=== PATIENT | female | born 1995 | race Caucasian/White ===

== ENCOUNTER → 2020-11-15 | Outpatient (CLI) | payer OTHER ==
[2020-11-15 10:00] LABS: APPEARANCE, URINE CLEAR (CLEAR); BACTERIA, URINE AUTO NEGATIVE (NEGATIVE); BILIRUBIN, URINE AUTO NEGATIVE (NEGATIVE); BLOOD, URINE BLOOD NEGATIVE (NEGATIVE); COLOR, URINE YELLOW (YELLOW); GLUCOSE, URINE (UA) AUTO NEGATIVE (NEGATIVE); KETONE, URINE AUTO NEGATIVE (NEGATIVE); LEUKOCYTE ESTERASE, URINE AUTO NEGATIVE (NEGATIVE); MUCUS, URINE SMALL (NEGATIVE); NITRITE, URINE AUTO NEGATIVE (NEGATIVE); PROTEIN, URINE AUTO NEGATIVE (NEGATIVE); RBC, URINE AUTO 3 /HPF (0-3); SPECIFIC GRAVITY URINE AUTO 1.023 (1.002-1.035); SQUAMOUS EPITHELIAL CELL UR AU 6 /HPF (0-6); UROBILINOGEN, URINE AUTO 0.2 mg/dL (0.0-2.0); WBC, URINE AUTO 0 /HPF (0-3)
[2020-11-15 10:02] LABS: BASO % 0.6 % (0.0-1.0); EOS # 0.1 10^3/uL (0.0-0.5); EOS % 1.2 % (0.0-3.0); HEMATOCRIT 42.8 % (36.0-47.0); HEMOGLOBIN 13.9 g/dl (12.0-15.5); LYMPH # 1.6 10^3/uL (1.5-5.0); LYMPH % 31.5 % (24.0-44.0); MEAN CORPUSCULAR HEMOGLOBIN 30.3 pg (27.0-33.0); MEAN CORPUSCULAR HGB CONC 32.5 g/dl (32.0-36.5); MEAN CORPUSCULAR VOLUME 93.2 fl (80.0-96.0); MONO # 0.5 10^3/uL (0.0-0.8); MONO % 10.3 % (2.0-8.0); NEUTROPHILS # 2.8 10^3/uL (1.5-8.5); NEUTROPHILS % 56.4 % (36.0-66.0); PLATELET COUNT, AUTOMATED 223 10^3/uL (150-450); RED BLOOD COUNT 4.59 10^6/uL (4.00-5.40)
[2020-11-15 10:21] LABS: HEMOGLOBIN A1c 4.8 %
[2020-11-15 10:41] LABS: ALBUMIN 4.2 GM/DL (3.2-5.2); ALT/SGPT 20 U/L (12-78); BILIRUBIN,TOTAL 0.8 MG/DL (0.2-1.0); BLOOD UREA NITROGEN 17 MG/DL (7-18); CALCIUM LEVEL 9.6 MG/DL (8.5-10.1); CARBON DIOXIDE LEVEL 29 MEQ/L (21-32); CHLORIDE LEVEL 107 MEQ/L (98-107); CHOLESTEROL LEVEL 140 MG/DL (<200); FREE T4 0.81 NG/DL (0.76-1.46); GLOMERULAR FILTRATION RATE > 60.0 (>60); GLUCOSE, FASTING 80 MG/DL (70-100); HDL CHOLESTEROL 80 MG/DL (>40); LDL CHOLESTEROL 53 MG/DL (<100); NON-HDL-C 60 MG/DL; POTASSIUM SERUM 4.5 MEQ/L (3.5-5.1); SODIUM LEVEL 139 MEQ/L (136-145); TRIGLYCERIDES LEVEL 36 MG/DL (<150)
[2020-11-15 11:58] LABS: TOTAL 25(OH) VITAMIN D 65.9 NG/ML (30.0-100.0)
== END ==
LOC: M LAB 08:53
PROVIDERS: ATTEND Physician Assistant
DX: Z00.01 Encounter for general adult medical examination with abnormal findings (principal)

== ENCOUNTER → 2021-01-14 | Outpatient (CLI) | payer OTHER ==
[~2021-01-14] MED LIST: ALBU8.5H INH; CITA40TA6 PO; D400400C PO; MAGN400C PO
== END ==
LOC: M LABSMTC 13:28
PROVIDERS: ATTEND Anesthesiology
DX: Z01.812 Encounter for preprocedural laboratory examination (principal); Z20.822 Contact with and (suspected) exposure to COVID-19

== ENCOUNTER 2021-01-18 09:13 | Day surgery (SDC) | payer OTHER ==
[~2021-01-18] VITALS: Ht 182.9 cm; Wt 65.3 kg
[~2021-01-18 09:13] MED LIST changes: +NS 1,000 ML IV ONE
[2021-01-18] MEDS ORDERED: propofoL 200 MG/20 ML VIAL As Ordered ONE ×2 (09:51→10:00)
[2021-01-18] MEDS ORDERED: LIDOCAINE 2% 100MG/5ML SDV (FOR ANES.) As Ordered ONE (09:51)
--- NOTE | 2021-01-18 10:10 | ROOR ---
Patient Name: Manjula Huggins Procedure Date: 01/18/2021 9:52 AM Date of : 1995 Age: 25 Room: [facility] Gender: Female Note Status: Finalized Procedure: Total Colonoscopy to Cecum + ileoscopy + Bx Indications: Lower abdominal pain, Change in bowel habits, Constipation, Clinically significant diarrhea of unexplained origin Providers: Selvin Mccormick MD Referring MD: Leena Keller Requesting Provider: Medicines: Monitored Anesthesia Care Complications: No immediate complications. Procedure: Pre-Anesthesia Assessment: - The heart rate, respiratory rate, oxygen saturations, blood pressure, adequacy of pulmonary ventilation, and response to care were monitored throughout the procedure. The Colonoscope was introduced through the anus and advanced to the terminal ileum, with identification of the appendiceal orifice and IC valve. The colonoscopy was performed without difficulty. The patient tolerated the procedure well. The quality of the bowel preparation was excellent. Findings: The perianal and digital rectal examinations were normal. No other significant abnormalities were identified in a careful examination of the remainder of the colon. The terminal ileum appeared normal. Biopsies for histology were taken with a cold forceps from the ascending colon, transverse colon, descending colon and rectosigmoid colon for evaluation of microscopic colitis. The exam was otherwise without abnormality on direct and retroflexion views. Impression: - The examined portion of the ileum was normal. - The examination was otherwise normal on direct and retroflexion views. - Biopsies were taken with a cold forceps from the ascending colon, transverse colon, descending colon and rectosigmoid colon for evaluation of microscopic colitis. - The exam was otherwise normal to the cecum. Recommendation: - Patient has a contact number available for emergencies. The signs and symptoms of potential delayed complications were discussed with the patient. Return to normal activities tomorrow. Written discharge instructions were provided to the patient. - High fiber diet. - Discharge patient to home. - Continue present medications. - Await pathology results. - Return to referring physician. - Repeat colonoscopy at age 52 for screening purposes. - The findings and recommendations were discussed with the patient's family. Procedure Code(s): --- Professional --- 79392, Colonoscopy, flexible; with biopsy, single or multiple Diagnosis Code(s): --- Professional --- R10.30, Lower abdominal pain, unspecified R19.4, Change in bowel habit K59.00, Constipation, unspecified R19.7, Diarrhea, unspecified CPT copyright 2019 [employer]. All rights reserved. 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 Selvin Mccormick MD Selvin Mccormick MD 01/18/2021 10:09:57 AM Electronically signed by Selvin Mccormick MD Number of Addenda: 0 Note Initiated On: 01/18/2021 9:52 AM Estimated Blood Loss: Estimated blood loss: none.
[2021-01-18 10:46] VITALS: BP 109/69
== END 2021-01-18 10:48 | disposition home or self-care (01) ==
LOC: M OPP 09:13
PROVIDERS: ATTEND Internal Medicine Gastroenterology
DX: K63.89 Other specified diseases of intestine (principal); R19.4 Change in bowel habit; R10.30 Lower abdominal pain, unspecified; R19.7 Diarrhea, unspecified; Z79.899 Other long term (current) drug therapy; Z88.8 Allergy status to other drugs, medicaments and biological substances

== ENCOUNTER 2021-03-13 16:50 | Emergency (ER) | payer OTHER ==
[~2021-03-13] VITALS: Ht 182.9 cm; Wt 65.7 kg
[~2021-03-13 16:50] MED LIST changes: -NS 1,000 ML IV ONE
[2021-03-13] MEDS ORDERED: FERR325T82 PO (17:07)
[2021-03-13] MEDS ORDERED: BUPR300T92 (17:07)
[2021-03-13 20:32] LABS: BASO % 0.3 % (0.0-1.0); EOS # 0.1 10^3/uL (0.0-0.5); EOS % 0.7 % (0.0-3.0); HEMATOCRIT 44.7 % (36.0-47.0); HEMOGLOBIN 14.8 g/dl (12.0-15.5); LYMPH # 2.2 10^3/uL (1.5-5.0); LYMPH % 21.6 % (24.0-44.0); MEAN CORPUSCULAR HEMOGLOBIN 30.3 pg (27.0-33.0); MEAN CORPUSCULAR HGB CONC 33.1 g/dl (32.0-36.5); MEAN CORPUSCULAR VOLUME 91.6 fl (80.0-96.0); MONO # 0.8 10^3/uL (0.0-0.8); MONO % 8.1 % (2.0-8.0); PLATELET COUNT, AUTOMATED 256 10^3/uL (150-450); RED BLOOD COUNT 4.88 10^6/uL (4.00-5.40); WHITE BLOOD COUNT 10.1 10^3/uL (4.0-10.0)
[2021-03-13 20:34] LABS: APPEARANCE, URINE HAZY (CLEAR); BACTERIA, URINE AUTO NEGATIVE (NEGATIVE); BILIRUBIN, URINE AUTO NEGATIVE (NEGATIVE); BLOOD, URINE BLOOD 2+ (NEGATIVE); COLOR, URINE YELLOW (YELLOW); GLUCOSE, URINE (UA) AUTO NEGATIVE (NEGATIVE); KETONE, URINE AUTO 1+ mg/dL (NEGATIVE); LEUKOCYTE ESTERASE, URINE AUTO NEGATIVE (NEGATIVE); MUCUS, URINE SMALL (NEGATIVE); NITRITE, URINE AUTO NEGATIVE (NEGATIVE); PROTEIN, URINE AUTO NEGATIVE (NEGATIVE); RBC, URINE AUTO 4 /HPF (0-3); SPECIFIC GRAVITY URINE AUTO 1.013 (1.002-1.035); SQUAMOUS EPITHELIAL CELL UR AU 1 /HPF (0-6); UROBILINOGEN, URINE AUTO 0.2 mg/dL (0.0-2.0); WBC, URINE AUTO 1 /HPF (0-3)
[2021-03-13] MEDS ORDERED: ACETAMINOPHEN 325 MG TAB PO ONE (20:40)
[2021-03-13 21:04] LABS: BLOOD UREA NITROGEN 13 MG/DL (7-18); CALCIUM LEVEL 9.7 MG/DL (8.5-10.1); CARBON DIOXIDE LEVEL 31 MEQ/L (21-32); CHLORIDE LEVEL 107 MEQ/L (98-107); CREATININE FOR GFR 0.88 MG/DL (0.55-1.30); GLOMERULAR FILTRATION RATE > 60.0 (>60); GLUCOSE, FASTING 85 MG/DL (70-100); HCG, SERUM QUANTITATIVE 15 MIU/ML; POTASSIUM SERUM 4.2 MEQ/L (3.5-5.1); SODIUM LEVEL 141 MEQ/L (136-145)
--- NOTE | 2021-03-13 22:01 | REPVR ---
PROCEDURE INFORMATION: Exam: US , Transvaginal Exam date and time: 03/13/2021 9:29 PM Age: 25 years old Clinical indication: Pain; Other: Vag bleeding; Gestational age or lmp: [id number]; ; Additional info: Pelvic pain-suprapubic and L sided, vag bleeding, 5 weeks preg TECHNIQUE: Imaging protocol: Real-time transvaginal obstetrical ultrasound of the maternal pelvis with image documentation. Transvaginal imaging was used for better evaluation of the fetus, adnexa, and/or cervix. COMPARISON: No relevant prior studies available. FINDINGS: Gestation: No evidence of a gestational sac. No pole demonstrated. No cardiac activity demonstrated. MATERNAL: Uterus: Uterus measures 6.8 x 3.3 x 4.5 cm. Endometrial echo complex measures 7.4 mm. Right adnexa: Right ovary measures 2.8 x 1.7 x 2.8 cm. Normal flow. Left adnexa: Left ovary measures 2.9 x 1.5 x 2.7 cm. Intraperitoneal space: Trace free fluid demonstrated in the cul-de-sac. IMPRESSION: Empty uterus in a patient who is reportedly 12 weeks 5 days based on clinical dating. Findings may indicate very early IUP prior to visualization of a gestational sac/venous in the setting of an accurate dates. Correlation with serial beta-hCG levels and follow ultrasound recommended in order to exclude ectopic verses very early or early failure or the fact at the patient is not currently . Electronically signed by: Cayden Mcclellan On 03/13/2021 22:00:44 PM
[2021-03-13 22:47] VITALS: BP 134/82
== END 2021-03-13 23:21 | disposition home or self-care (01) ==
LOC: M ED 16:50
DX: O26.851 Spotting complicating pregnancy, first trimester (principal); O20.0 Threatened abortion; O26.891 Other specified pregnancy related conditions, first trimester; R11.0 Nausea; M54.5 Low back pain; O99.511 Diseases of the respiratory system complicating pregnancy, first trimester; J45.909 Unspecified asthma, uncomplicated; O99.891 Other specified diseases and conditions complicating pregnancy; R87.89 Other abnormal findings in specimens from female genital organs; O99.111 Other diseases of the blood and blood-forming organs and certain disorders involving the immune mechanism complicating pregnancy, first trimester; D68.4 Acquired coagulation factor deficiency; O99.341 Other mental disorders complicating pregnancy, first trimester; F41.9 Anxiety disorder, unspecified; F33.9 Major depressive disorder, recurrent, unspecified; Z3A.12 12 weeks gestation of pregnancy; Z79.899 Other long term (current) drug therapy; Z88.0 Allergy status to penicillin; Z86.19 Personal history of other infectious and parasitic diseases; Z98.890 Other specified postprocedural states

== ENCOUNTER → 2021-03-15 | Outpatient (CLI) | payer OTHER ==
[~2021-03-15] MED LIST changes: +BUPR300T92; +FERR325T82 PO
== END ==
LOC: M LAB 12:50
PROVIDERS: ATTEND Physician Assistant
DX: O20.0 Threatened abortion (principal); O46.90 Antepartum hemorrhage, unspecified, unspecified trimester

== ENCOUNTER → 2022-06-11 | Outpatient (REF) | payer OTHER | LOC: M SFHCWAGY 16:52 | PROVIDERS: ATTEND Advanced Practice Midwife | DX: Z12.4 Encounter for screening for malignant neoplasm of cervix (principal) | CPT/HCPCS: 87624; G0123 ==

== ENCOUNTER 2022-08-31 12:46 | Emergency (ER) | payer OTHER ==
[~2022-08-31] VITALS: Ht 182.9 cm; Wt 63.4 kg
[2022-08-31] MEDS ORDERED: HYDR-3363 (15:49)
[2022-08-31] MEDS ORDERED: BOOSTRIX/ADACEL VACCINE (DIPHTH/PERTUSS/ACELL/TETANUS) 0.5ML SYR IM ONE (16:40)
[2022-08-31] MEDS ORDERED: ACETAMINOPHEN 500 MG TAB PO ONE (16:40)
[2022-08-31] MEDS ORDERED: LIDOCAINE 1% MDV 20ML VIAL INFIL ONE (16:40)
[2022-08-31 18:26] VITALS: BP 126/73
== END 2022-08-31 18:29 | disposition home or self-care (01) ==
LOC: M ED 12:46
DX: S61.011A Laceration without foreign body of right thumb without damage to nail, initial encounter (principal); S61.210A Laceration without foreign body of right index finger without damage to nail, initial encounter; D68.51 Activated protein C resistance; F10.10 Alcohol abuse, uncomplicated; J45.909 Unspecified asthma, uncomplicated; Z88.0 Allergy status to penicillin; Y93.G1 Activity, food preparation and clean up; Y99.0 Civilian activity done for income or pay; Z79.52 Long term (current) use of systemic steroids; Z79.811 Long term (current) use of aromatase inhibitors

== ENCOUNTER → 2022-09-04 | Outpatient (CLI) | payer OTHER ==
[~2022-09-04] MED LIST changes: +HYDR-3363; +OXYC1TAB23 PO
== END ==
LOC: M LABSMTC 11:12
PROVIDERS: ATTEND Anesthesiology
DX: Z01.812 Encounter for preprocedural laboratory examination (principal); Z20.822 Contact with and (suspected) exposure to COVID-19

== ENCOUNTER 2022-09-05 11:59 | Day surgery (SDC) | payer OTHER ==
[~2022-09-05] VITALS: Ht 182.9 cm; Wt 62.6 kg
[~2022-09-05 11:59] MED LIST changes: -OXYC1TAB23 PO
[2022-09-05] MEDS ORDERED: BACITRACIN OINTMENT 30GM TUBE As Ordered ONE (13:43)
[2022-09-05] MEDS ORDERED: fentaNYL 100 MCG/2 ML INJECTION As Ordered ONE (14:11)
[2022-09-05] MEDS ORDERED: LIDOCAINE 2% 100MG/5ML SDV (FOR ANES.) As Ordered ONE (14:28)
[2022-09-05] MEDS ORDERED: propofoL 200 MG/20 ML VIAL As Ordered ONE ×2 (14:28→15:37)
[2022-09-05] MEDS ORDERED: BUPIVACAINE HCL 0.25% 30ML VIAL As Ordered ONE (14:29)
[2022-09-05] MEDS ORDERED: ceFAZolin 2 GM/D5W 50 ML IV BAG As Ordered ONE (14:33)
[2022-09-05] MEDS ORDERED: KETOROLAC 60MG 2ML VIAL As Ordered ONE (14:42)
[2022-09-05] MEDS ORDERED: ONDANSETRON 4MG 2ML VIAL As Ordered ONE (14:42)
[2022-09-05] MEDS ORDERED: LR 1,000 ML IV SCH (15:20)
[2022-09-05] MEDS ORDERED: ONDANSETRON 4MG 2ML VIAL IV PRN (15:20)
[2022-09-05] MEDS ORDERED: OXYC1TAB23 PO (15:40)
[2022-09-05] MEDS: oxyCODONE 5MG TAB PO PRN ×2 (15:46→16:17)
[2022-09-05] MEDS: fentaNYL 100 MCG/2 ML INJECTION IV PRN ×3 (15:46→16:05)
[2022-09-05 16:58] VITALS: BP 132/81
== END 2022-09-05 17:14 | disposition home or self-care (01) ==
LOC: M SDC 11:59
PROVIDERS: ATTEND Orthopaedic Surgery Hand Surgery
DX: S64.31XA Injury of digital nerve of right thumb, initial encounter (principal); J45.909 Unspecified asthma, uncomplicated; D68.59 Other primary thrombophilia; Z88.0 Allergy status to penicillin; Z79.899 Other long term (current) drug therapy; K58.8 Other irritable bowel syndrome; F41.9 Anxiety disorder, unspecified; F32.A Depression, unspecified; Y92.511 Restaurant or cafe as the place of occurrence of the external cause; W25.XXXA Contact with sharp glass, initial encounter; Y99.0 Civilian activity done for income or pay
CPT/HCPCS: 64910; 81025; C1762; J0690; J1100; J1885; J2405; J3010; S0020

== ENCOUNTER → 2022-11-03 | Outpatient (CLI) | payer OTHER ==
[~2022-11-03] MED LIST changes: +OXYC1TAB23 PO
== END ==
LOC: M WHC 09:55
PROVIDERS: ATTEND Obstetrics & Gynecology
DX: N94.6 Dysmenorrhea, unspecified (principal); Q51.810 Arcuate uterus; Q51.28 Other and unspecified doubling of uterus

== ENCOUNTER → 2022-12-31 | Outpatient (REF) | payer OTHER | LOC: M PLALAB 13:06 | PROVIDERS: ATTEND Advanced Practice Midwife | DX: N94.6 Dysmenorrhea, unspecified (principal); N94.10 Unspecified dyspareunia; Q51.810 Arcuate uterus; R10.2 Pelvic and perineal pain; G89.29 Other chronic pain | CPT/HCPCS: 87070; G0463 ==

== ENCOUNTER 2023-03-13 09:28 | Day surgery (SDC) | payer OTHER ==
[~2023-03-13] VITALS: Ht 182.9 cm; Wt 64.0 kg
[~2023-03-13 09:28] MED LIST changes: +HYDR-3363 PO; +LR 1,000 ML IV SCH; +RA M500C PO; +VENTAER INH
[2023-03-13] MEDS ORDERED: LIDOCAINE 2% 100MG/5ML SDV (FOR ANES.) As Ordered ONE (09:41)
[2023-03-13] MEDS ORDERED: ROCURONIUM BROMIDE 50MG/5ML VIAL As Ordered ONE (09:41)
[2023-03-13] MEDS ORDERED: MIDAZOLAM INJ 2MG/2ML VIAL As Ordered ONE (09:41)
[2023-03-13] MEDS ORDERED: fentaNYL 100 MCG/2 ML INJECTION As Ordered ONE (09:41)
[2023-03-13] MEDS ORDERED: propofoL 200 MG/20 ML VIAL As Ordered ONE (09:41)
[2023-03-13] MEDS ORDERED: ONDANSETRON 4MG 2ML VIAL As Ordered ONE (09:42)
[2023-03-13] MEDS ORDERED: KETOROLAC 60MG 2ML VIAL As Ordered ONE (09:42)
[2023-03-13 10:15] LABS: HEMATOCRIT 43.8 % (36.0-47.0); HEMOGLOBIN 14.3 g/dl (12.0-15.5); MEAN CORPUSCULAR HEMOGLOBIN 30.1 pg (27.0-33.0); MEAN CORPUSCULAR HGB CONC 32.6 g/dl (32.0-36.5); MEAN CORPUSCULAR VOLUME 92.2 fl (80.0-96.0); PLATELET COUNT, AUTOMATED 203 10^3/uL (150-450); RED BLOOD COUNT 4.75 10^6/uL (4.00-5.40); WHITE BLOOD COUNT 5.7 10^3/uL (4.0-10.0)
[2023-03-13] MEDS ORDERED: METHYLENE BLUE 0.5% (5MG/ML) 10 ML AMP (PROVAYBLUE) As Ordered ONE (11:11)
[2023-03-13] MEDS ORDERED: SUGAMMADEX SODIUM 500 MG/5 ML VIAL (BRIDION) As Ordered ONE (11:49)
[2023-03-13] MEDS ORDERED: ONDANSETRON 4MG 2ML VIAL IV PRN (11:55)
[2023-03-13] MEDS ORDERED: fentaNYL 100 MCG/2 ML INJECTION IV PRN (11:55)
[2023-03-13] MEDS ORDERED: LR 1,000 ML IV SCH (11:55)
[2023-03-13] MEDS: HYDROMORPHONE HCL 0.5 MG/ 0.5 ML SYRINGE IV PRN ×4 (12:17→12:36)
[2023-03-13] MEDS: oxyCODONE 5MG TAB PO PRN ×2 (12:18→12:52)
[2023-03-13] MEDS ORDERED: IBUP80TA PO (12:18)
[2023-03-13] MEDS ORDERED: PERC5TAB12 PO (12:19)
[2023-03-13 13:28] VITALS: BP 117/68; TEMP 98.1; O2SAT 100
== END 2023-03-13 17:05 | disposition home or self-care (01) ==
LOC: M SDC 09:28
PROVIDERS: ATTEND Obstetrics & Gynecology
DX: N80.9 Endometriosis, unspecified (principal); D68.51 Activated protein C resistance; F41.9 Anxiety disorder, unspecified; F32.A Depression, unspecified; J45.909 Unspecified asthma, uncomplicated; Z79.51 Long term (current) use of inhaled steroids; Z79.899 Other long term (current) drug therapy; K58.1 Irritable bowel syndrome with constipation; Z88.0 Allergy status to penicillin
CPT/HCPCS: 36415; 58662; 81025; 85027; 86850; 86900; 86901; J0665; J1100; J1170; J1885; J2250; J2405; J3010; Q9968

== ENCOUNTER → 2023-03-27 | Outpatient (CLI) | payer OTHER ==
[~2023-03-27] MED LIST changes: +IBUP80TA PO; -LR 1,000 ML IV SCH; +PERC5TAB12 PO
[2023-03-27 15:36] LABS: BASO % 0.4 % (0.0-1.0); EOS # 0.1 10^3/uL (0.0-0.5); EOS % 1.9 % (0.0-3.0); HEMATOCRIT 41.6 % (36.0-47.0); HEMOGLOBIN 13.9 g/dl (12.0-15.5); LYMPH # 1.8 10^3/uL (1.5-5.0); LYMPH % 24.3 % (24.0-44.0); MEAN CORPUSCULAR HEMOGLOBIN 30.5 pg (27.0-33.0); MEAN CORPUSCULAR HGB CONC 33.4 g/dl (32.0-36.5); MEAN CORPUSCULAR VOLUME 91.4 fl (80.0-96.0); MONO # 0.6 10^3/uL (0.0-0.8); MONO % 8.2 % (2.0-8.0); NEUTROPHILS # 4.7 10^3/uL (1.5-8.5); NEUTROPHILS % 64.9 % (36.0-66.0); PLATELET COUNT, AUTOMATED 188 10^3/uL (150-450); RED BLOOD COUNT 4.55 10^6/uL (4.00-5.40); WHITE BLOOD COUNT 7.3 10^3/uL (4.0-10.0)
[2023-03-27 15:41] LABS: C REACTIVE PROTEIN QUANTITATIV < 0.40 MG/DL (<1.0); LIPASE 28 U/L (12-53)
[2023-03-27 15:43] LABS: ALBUMIN 4.2 G/DL (3.2-5.2); ALKALINE PHOSPHATASE 80 U/L (46-116); ALT/SGPT 22 U/L (7.0-40); AST/SGOT < 8 U/L (<34); BILIRUBIN,TOTAL 0.8 MG/DL (0.3-1.2); BLOOD UREA NITROGEN 18 MG/DL (9-23); CALCIUM LEVEL 9.1 MG/DL (8.5-10.1); CARBON DIOXIDE LEVEL 29 MMOL/L (20-31); CHLORIDE LEVEL 106 MMOL/L (98-107); CREATININE FOR GFR 0.85 MG/DL (0.55-1.30); GLOMERULAR FILTRATION RATE > 60.0 (>60); GLUCOSE, FASTING 82 MG/DL (60-100); IRON (FE) 123 UG/DL (50-170); MAGNESIUM LEVEL 1.9 MG/DL (1.8-2.4); PERCENT SATURATION 40.5 % (13.2-45.0); POTASSIUM SERUM 4.3 MMOL/L (3.5-5.1); SODIUM LEVEL 142 MMOL/L (136-145); TOTAL IRON BINDING CAPACITY 304 UG/DL (250-425); TOTAL PROTEIN 7.1 G/DL (5.7-8.2)
[2023-03-27 15:44] LABS: THYROID STIMULATING HORMONE 2.065 uIU/ML (0.55-4.78); TOTAL 25(OH) VITAMIN D 50.1 NG/ML (20.0-100.0)
[2023-03-27 15:45] LABS: FERRITIN 102.8 NG/ML (7.3-270.7); FREE T4 0.97 NG/DL (0.89-1.76); VITAMIN B12 LEVEL 453 PG/ML (211-911)
[2023-03-27 16:09] LABS: FOLATE 16.16 NG/ML (>5.4)
[2023-03-27 16:38] LABS: ERYTHROCYTE SEDIMENTATION RATE 3 mm/hr (0-20)
[2023-04-04 15:07] LABS: H PYLORI SERUM QUANT IgG ABY 0.71 (0.00-0.79); HLA-B27 Negative (.)
== END ==
LOC: M PLALAB 14:12
PROVIDERS: ATTEND Physician Assistant
DX: G89.29 Other chronic pain (principal); M54.50 Low back pain, unspecified; F32.81 Premenstrual dysphoric disorder; K58.9 Irritable bowel syndrome, unspecified; R53.83 Other fatigue
CPT/HCPCS: 36415; 80053; 81374; 82306; 82607; 82728; 82746; 83550; 83690; 83735; 84439; 84443; 85025; 85652; 86140; 86677; G0463

== ENCOUNTER → 2023-04-17 | Outpatient (CLI) | payer OTHER | LOC: M PLAIMG 08:15 | PROVIDERS: ATTEND Physician Assistant | DX: G89.29 Other chronic pain (principal); M54.50 Low back pain, unspecified ==

== ENCOUNTER → 2023-06-23 | Outpatient (REF) | payer OTHER | LOC: M SFHCWAGY 10:24 | PROVIDERS: ATTEND Obstetrics & Gynecology | DX: Z01.419 Encounter for gynecological examination (general) (routine) without abnormal findings (principal); N80.9 Endometriosis, unspecified; Z88.0 Allergy status to penicillin | CPT/HCPCS: 87624; G0123; G0463 ==

== ENCOUNTER → 2023-08-11 | Outpatient (CLI) | payer OTHER | LOC: M RAD 07:32 | PROVIDERS: ATTEND Physician Assistant | DX: R10.11 Right upper quadrant pain (principal) ==

== ENCOUNTER → 2023-09-21 | Outpatient (CLI) | payer OTHER | LOC: M RAD 17:09 | PROVIDERS: ATTEND Physician Assistant Medical | DX: M79.671 Pain in right foot (principal) ==

== ENCOUNTER → 2023-10-13 | Outpatient (CLI) | payer OTHER ==
[~2023-10-13] MED LIST changes: +ISOVUE-370 76% 100ML VIAL As Ordered ONE
== END ==
LOC: M RADPRO 12:05
PROVIDERS: ATTEND Obstetrics & Gynecology
DX: N97.9 Female infertility, unspecified (principal); N80.9 Endometriosis, unspecified
CPT/HCPCS: 58340; 74740; Q9967

== ENCOUNTER → 2023-10-29 | Outpatient (CLI) | payer OTHER ==
[~2023-10-29] MED LIST changes: -ISOVUE-370 76% 100ML VIAL As Ordered ONE
== END ==
LOC: M RAD 15:37
PROVIDERS: ATTEND Obstetrics & Gynecology
DX: N80.9 Endometriosis, unspecified (principal); N83.201 Unspecified ovarian cyst, right side; Q51.28 Other and unspecified doubling of uterus

== ENCOUNTER → 2023-10-30 | Outpatient (CLI) | payer OTHER | LOC: M RAD 16:33 | PROVIDERS: ATTEND Physician Assistant | DX: M25.512 Pain in left shoulder (principal) ==

== ENCOUNTER → 2023-11-09 | Outpatient (REF) | payer OTHER | LOC: M SFHCPLAZ 12:12 | PROVIDERS: ATTEND Physician Assistant | DX: R19.5 Other fecal abnormalities (principal); R10.84 Generalized abdominal pain; R19.4 Change in bowel habit ==

== ENCOUNTER → 2023-11-25 | Outpatient (REF) | payer OTHER ==
[~2023-11-25] MED LIST changes: +BUPR-597; -BUPR300T92
[2023-11-25 14:49] LABS: CLOSTRIDIUM DIFFICILE PCR NEGATIVE (NEGATIVE)
== END ==
LOC: M LAB REF 11:16
PROVIDERS: ATTEND Physician Assistant
DX: K58.9 Irritable bowel syndrome, unspecified (principal); R14.3 Flatulence; K59.1 Functional diarrhea

== ENCOUNTER → 2023-12-03 | Outpatient (CLI) | payer OTHER | LOC: M LAB 09:05 | PROVIDERS: ATTEND Physician Assistant | DX: D68.51 Activated protein C resistance (principal) ==

== ENCOUNTER → 2024-02-26 | Outpatient (CLI) | payer OTHER | LOC: M RAD 12:58 | PROVIDERS: ATTEND Physician Assistant | DX: M25.561 Pain in right knee (principal); M25.562 Pain in left knee ==